=== PATIENT | female | born 1985 | race Caucasian/White ===

== ENCOUNTER 2018-03-25 20:15 | Emergency (ER) | payer BC ==
[~2018-03-25] VITALS: Ht 170.2 cm; Wt 66.7 kg
[2018-03-25 20:24] VITALS: BP 136/94; Ht 170.2 cm; Wt 66.7 kg
[2018-03-25 21:33] LABS: BASOPHIL % 0.4 % (0-2); PLATELET COUNT 234 x10^3mcL (130-400); RED CELL DISTRIBUTION WIDTH 12.7 % (11.5-14.5)
[2018-03-25 21:59] LABS: CALCIUM 8.5 mg/dL (8.5-10.1); CARBON DIOXIDE 23.9 mmol/L (21-32); CHLORIDE SERUM 103 mmol/L (98-107); CREATININE SERUM 0.7 mg/dL (0.6-1.0); GFR1 > 60 mL/min; GLUCOSE SERUM 94 mg/dL (74-106); POTASSIUM SERUM 4.1 mmol/L (3.5-5.1); SODIUM SERUM 138 mmol/L (136-145)
[2018-03-25 22:03] LABS: ALBUMIN 3.7 g/dL (3.4-5.0); ALKALINE PHOSPHATASE 58 U/L (46-116); ALT/SGPT 20 U/L (14-59); AST/SGOT 20 U/L (15-37); BILIRUBIN TOTAL 0.64 mg/dL (0.20-1.00); LIPASE 158 IU/L (73-393); TOTAL PROTEIN, SERUM 7.1 g/dL (6.4-8.2)
== END 2018-03-25 22:39 | disposition home or self-care (01) ==
LOC: ED 20:15
PROVIDERS: Emergency Medicine
DX: K52.9 Noninfective gastroenteritis and colitis, unspecified (principal); J45.909 Unspecified asthma, uncomplicated; Z88.6 Allergy status to analgesic agent
CPT/HCPCS: 36415; J2405; J7030

== ENCOUNTER 2018-05-11 12:30 | Emergency (ER) | payer BC ==
[~2018-05-11] VITALS: Ht 170.2 cm; Wt 67.1 kg
[2018-05-11 12:51] VITALS: BP 143/70; Ht 170.2 cm; Wt 67.1 kg
== END 2018-05-11 16:25 | disposition home or self-care (01) ==
LOC: ED 12:30
DX: B00.1 Herpesviral vesicular dermatitis (principal); J45.909 Unspecified asthma, uncomplicated; Z88.8 Allergy status to other drugs, medicaments and biological substances
CPT/HCPCS: 87491; 87591; J0696

== ENCOUNTER 2018-08-08 13:31 | Emergency (ER) | payer BC ==
[~2018-08-08] VITALS: Ht 170.2 cm; Wt 67.1 kg
[2018-08-08 13:38] VITALS: Ht 170.2 cm; Wt 67.1 kg
[2018-08-08 15:07] VITALS: BP 141/70
== END 2018-08-08 15:16 | disposition home or self-care (01) ==
LOC: ED 13:31
DX: F41.8 Other specified anxiety disorders (principal); J45.909 Unspecified asthma, uncomplicated; Z98.890 Other specified postprocedural states; Z88.8 Allergy status to other drugs, medicaments and biological substances

== ENCOUNTER 2018-08-28 19:29 | Emergency (ER) | payer BC ==
[~2018-08-28] VITALS: Ht 170.2 cm; Wt 68.0 kg
[2018-08-28 19:30] VITALS: Ht 170.2 cm; Wt 68.0 kg
[2018-08-28 22:00] LABS: BASOPHIL % 0.4 % (0-2); PLATELET COUNT 293 x10^3mcL (130-400); RED CELL DISTRIBUTION WIDTH 13.2 % (11.5-14.5)
[2018-08-28 22:08] LABS: CALCIUM 9.1 mg/dL (8.5-10.1); CARBON DIOXIDE 25.7 mmol/L (21-32); CHLORIDE SERUM 101 mmol/L (98-107); CREATININE SERUM 0.9 mg/dL (0.6-1.0); GFR1 > 60 mL/min; GLUCOSE SERUM 112 mg/dL (74-106); POTASSIUM SERUM 3.4 mmol/L (3.5-5.1); SODIUM SERUM 137 mmol/L (136-145)
[2018-08-28 22:13] LABS: ALBUMIN 3.7 g/dL (3.4-5.0); ALKALINE PHOSPHATASE 57 U/L (46-116); ALT/SGPT 17 U/L (14-59); AST/SGOT 18 U/L (15-37); BILIRUBIN TOTAL 0.2 mg/dL (0.20-1.00); TOTAL PROTEIN, SERUM 7.2 g/dL (6.4-8.2)
[2018-08-28 23:52] VITALS: BP 136/59
== END 2018-08-28 23:52 | disposition home or self-care (01) ==
LOC: ED 19:29
PROVIDERS: Emergency Medicine
DX: F41.9 Anxiety disorder, unspecified (principal); J45.909 Unspecified asthma, uncomplicated; Z98.890 Other specified postprocedural states; Z88.8 Allergy status to other drugs, medicaments and biological substances
CPT/HCPCS: J2405; J7030; Q0092